=== PATIENT | female | born 1985 | race Caucasian/White ===

== ENCOUNTER 2020-03-10 21:07 | Emergency (ER) | payer MEDICAID ==
[~2020-03-10] VITALS: Ht 149.9 cm; Wt 45.4 kg
[2020-03-10] MEDS ORDERED: IBU800 MG PO (22:35)
[2020-03-10] MEDS ORDERED: HYDROCODON-ACE1 EAC7 PO (22:35)
[2020-03-10 23:01] VITALS: BP 125/84
== END 2020-03-10 23:01 | disposition home or self-care (01) ==
LOC: M.ERS 21:07
DX: S22.000A Wedge compression fracture of unspecified thoracic vertebra, initial encounter for closed fracture (principal); R07.81 Pleurodynia; Z88.1 Allergy status to other antibiotic agents; Z88.6 Allergy status to analgesic agent; Z98.890 Other specified postprocedural states; Y08.89XA Assault by other specified means, initial encounter; Y93.89 Activity, other specified; Y92.89 Other specified places as the place of occurrence of the external cause; Y99.8 Other external cause status

== ENCOUNTER 2020-07-13 08:53 | Emergency (ER) | payer MEDICAID ==
[~2020-07-13] VITALS: Ht 149.9 cm; Wt 47.6 kg
[~2020-07-13 08:53] MED LIST: HYDROCODON-ACE1 EAC7 PO; IBU800 MG PO
[2020-07-13 09:38] LABS: URINE BILIRUBIN NEGATIVE (Negative); URINE BLOOD NEGATIVE (Negative); URINE CLARITY CLEAR; URINE COLOR YELLOW; URINE GLUCOSE-RANDOM NEGATIVE (Negative); URINE KETONES NEGATIVE (Negative); URINE LEUKOCYTES-REFLEX 1+ (Negative); URINE PROTEIN NEGATIVE (Negative); URINE UROBILINOGEN 0.2 E.U./dl (0.2-1.0)
[2020-07-13 09:38] LABS: ABSOLUTE EOSINOPHILS 0.1 thou/uL (0.0-0.7); ABSOLUTE LYMPHOCYTES 1.8 thou/uL (0.8-5.3); ABSOLUTE MONOCYTES 0.6 thou/uL (0.0-1.2); ABSOLUTE NEUTROPHILS 6.4 thou/uL (1.6-8.1); BASOPHILS 0.5 %; EOSINOPHILS 1.5 %; HEMATOCRIT 39.8 % (37.0-47.0); HEMOGLOBIN 14.1 gm/dL (12.0-15.0); LYMPHOCYTES 20.3 %; MCH 33.2 pg (26.0-34.0); MCHC 35.4 g/dL (28.0-37.0); MCV 93.8 fL (80.0-100.0); MONOCYTES 7.2 %; MPV 8.5 fl. (7.2-11.1); NUCLEATED RBCS 0 /100WBC; PLATELET COUNT* 251 thou/uL (150-400); POLYS 70.5 %; RBC 4.25 mil/uL (4.20-5.00); RDW-CV 12.7 % (10.5-14.5); WBC 9.1 thou/uL (4.0-11.0)
[2020-07-13 09:46] LABS: BACTERIA-REFLEX >30 Many /HPF (None Seen); CASTS None Seen /LPF (None Seen); CRYSTALS None Seen /LPF (None Seen); SQUAMOUS 0-3 Few /LPF (0-3); URINE NITRITE-REFLEX POSITIVE (Negative); URINE RBC 0-2 Rare /HPF (0-2); URINE WBC-REFLEX 0-5 Rare /HPF (0-5)
[2020-07-13 09:50] LABS: CALCIUM 8.6 mg/dL (8.5-10.1); CREATININE 0.8 mg/dL (0.6-1.3); POTASSIUM 3.3 mmol/L (3.5-5.1)
[2020-07-13 09:54] LABS: ALBUMIN 3.5 g/dL (3.4-5.0); TOTAL BILIRUBIN 0.2 mg/dL (<0.1-1.0); TOTAL PROTEIN 7.2 g/dL (6.4-8.2)
[2020-07-13] MEDS ORDERED: BACTRIM DS TAB1 EAC1 PO (11:48)
[2020-07-13] MEDS ORDERED: NORCO 5-325 TA1 EAC2 PO (11:48)
[2020-07-13 12:20] VITALS: BP 116/83
== END 2020-07-13 12:20 | disposition home or self-care (01) ==
LOC: M.ERS 08:53
PROVIDERS: Emergency Medicine Emergency Medical Services
DX: N39.0 Urinary tract infection, site not specified (principal); Z88.1 Allergy status to other antibiotic agents; Z88.6 Allergy status to analgesic agent; Z98.890 Other specified postprocedural states